=== PATIENT | female | born 1975 | race Native Hawaiian/Other Pacific Islander ===

== ENCOUNTER 2017-11-28 03:26 | Emergency (ER) | payer BC ==
[2017-11-28] MEDS ORDERED: MOTRIN ONE (03:47)
[2017-11-28] MEDS ORDERED: MOTRIN PO ONE (03:50)
--- NOTE | 2017-11-28 04:36 | XRay Report ---
FINAL REPORT EXAM: XR FOREARM RT HISTORY: Rt forearm to elbow pain post fall TECHNIQUE: Four views of the right forearm were submitted. FINDINGS: On the AP view there is localized cortical thickening in the distal diaphysis of the ulna. This may be related to a remote fracture with healing. There is no evidence of acute fracture involving the radius or ulna. The elbow and wrist joints do not show any acute changes. IMPRESSION: No definite acute fracture or dislocation. Localized cortical thickening in the distal diaphysis of the ulna. This may be related to remote trauma.
--- NOTE | 2017-11-28 04:37 | XRay Report ---
FINAL REPORT EXAM: XR HAND 2V RT HISTORY: Rt hand wrist pain post fall TECHNIQUE: Three views of the right hand were submitted. FINDINGS: There is no evidence of fracture or soft tissue injury. The wrist joint appears intact. IMPRESSION: Within normal limits. If there is persistent pain, a follow-up study is recommended 7-10 days to evaluate for occult fracture.
--- NOTE | 2017-11-28 07:53 | Emergency Department Report ---
HPI - General Chief Complaint: Extremity Injury, Upper Time Seen by Provider: 11/28/17 07:51 - HPI HPI: 42-year-old female presents to the emergency department after she tripped last night and fell with an outstretched right hand. This occurred around 10 PM. The pain became progressively worse to about an 8 out of 10 in the hand, wrist and distal forearm. She denies any swelling or obvious deformity. She did not take anything for her symptoms prior to presentation. She did get some relief when she arrived with some ibuprofen and an ice pack. She is right-hand dominant. She complains of some decreased motion secondary to pain. She denies any past medical history. She does not have a primary care physician. ED Past Medical Hx - Past Medical History Previous Medical History?: No - Surgical History Past Surgical History?: No - Social History Smoking Status: Never Smoker Substance Use Type: None - Medications Home Medications: Home Medications Medication Instructions Recorded Confirmed Last Taken Type HYDROcodone/ACETAMINOPHEN [Pelican 1 each PO Q8H PRN #8 tablet 11/28/17 Unknown Rx 5-325 Tablet] ED Review of Systems ROS: Stated complaint: FELL HURT LEFT HAND Other details as noted in HPI Comment: All other systems reviewed and negative Constitutional: denies: chills, fever Eyes: denies: eye pain, eye discharge, vision change ENT: denies: ear pain, throat pain Respiratory: denies: cough, shortness of breath, wheezing Cardiovascular: denies: chest pain, palpitations Gastrointestinal: denies: abdominal pain, nausea, diarrhea Genitourinary: denies: urgency, dysuria, discharge Musculoskeletal: arthralgia. denies: back pain Skin: denies: rash, lesions Neurological: denies: headache, weakness, paresthesias Physical Exam - Physical Exam Vital Signs: Vital Signs 11/28/17 03:33 Pulse Rate 73 Respiratory 16 Rate Blood Pressure 115/73 O2 Sat by Pulse 100 Oximetry Physical Exam: GENERAL: The patient is well-developed well-nourished. HENT: Normocephalic. Atraumatic. Patient has moist mucous membranes. EYES: Extraocular motions are intact. NECK: Supple. Trachea is midline. CHEST/LUNGS: Clear to auscultation. There is no respiratory distress noted. HEART/CARDIOVASCULAR: Regular. There is no tachycardia. There is no murmur. ABDOMEN: Abdomen is soft, nontender. Patient has normal bowel sounds. SKIN: Skin is warm and dry. No appreciable edema to the affected right hand and /or wrist. NEURO: The patient is awake, alert, and oriented. The patient is cooperative. The patient has no focal neurologic deficits. The patient has normal speech. MUSCULOSKELETAL: There is some tenderness to palpation to the right hand, wrist and distal forearm but no obvious deformity. Decreased range of motion of the hand and wrist secondary to pain. Radial pulse +2 over 4 and Refill less than 2 seconds to the affected right upper extremity. ED Course Vital Signs 11/28/17 03:33 Pulse Rate 73 Respiratory 16 Rate Blood Pressure 115/73 O2 Sat by Pulse 100 Oximetry ED Medical Decision Making - Radiology Data Radiology results: image reviewed interpreted by me: X-ray of the right hand and forearm do not show any fracture, dislocation or any acute process. - Medical Decision Making Patient presents after a fall with an outstretched hand. No obvious fracture or dislocation on x-ray. I discussed with the patient that we cannot see ligament or tendons and there is potential that she could have injured one of these. She will use rest, ice, elevation and she will be placed in a splint. She'll be given orthopedic referrals. She will return to the ER with any worsening or symptoms or any acute distress. - Differential Diagnosis fracture, dislocation, contusion, sprain, strain Critical Care Time: No Critical care attestation.: If time is entered above; I have spent that time in minutes in the direct care of this critically ill patient, excluding procedure time. ED Disposition Clinical Impression: Right hand pain, Right wrist pain Disposition: TO HOME OR SELFCARE Is pt being admited?: No Condition: Stable Instructions: Wrist Injury (ED), Arthralgia (ED) Additional Instructions: Please follow up with an orthopedist next week. You can use ice, rest, elevation. Return to the emergency Department with any worsening of your symptoms or any acute distress. You have been prescribed a medication that is sedating and therefore should not be taken prior to driving, working, and responsible for children and in no way should be mixed with alcohol of any quantity. Prescriptions: HYDROcodone/ACETAMINOPHEN [Pelican 5-325 Tablet] 1 each PO Q8H PRN #8 tablet PRN Reason: Pain Referrals: PRIMARY CARE, [Primary Care Provider] - 3-5 Days OLGA SOLIS MD [Staff Physician] - 3-5 Days [facility] [Provider Group] - 3-5 Days Forms: Work/School Release Form(ED) Time of Disposition: 07:57
[2017-11-28 08:11] VITALS: BP 143/74
== END 2017-11-28 08:12 | disposition home or self-care (01) ==
LOC: ED 03:26
DX: M79.641 Pain in right hand (principal); M25.531 Pain in right wrist